=== PATIENT | male | born 1965 | race Caucasian/White ===

== ENCOUNTER 2021-07-27 06:55 | Day surgery (SDC) | payer MEDICARE, MEDICAID ==
[2021-07-27] MEDS ORDERED: fentaNYL 100 MCG/2 ML SDV ONE (07:22)
[2021-07-27] MEDS ORDERED: Midazolam 1 MG/ML 2 ML SDV ONE (07:22)
[2021-07-27] MEDS ORDERED: Propofol 200 MG/20 ML SDV ONE (07:23)
[2021-07-27] MEDS ORDERED: Lactated Ringers 1,000 ML IV SCH (07:45)
== END 2021-07-27 10:24 | disposition home or self-care (01) ==
LOC: JP.SDS 06:55
PROVIDERS: ATTEND Family Medicine
DX: Z12.11 Encounter for screening for malignant neoplasm of colon (principal); K64.4 Residual hemorrhoidal skin tags; Q90.9 Down syndrome, unspecified
CPT/HCPCS: J2250; J2704; J3010; J7120

== ENCOUNTER 2022-10-30 14:50 | Emergency (ER) | payer MEDICARE, MEDICAID ==
[2022-10-30] MEDS ORDERED: Doxycycline 100 MG Cap PO ONE (16:19)
[2022-10-30] MEDS ORDERED: Bacitracin Oint 1 GM U/D Packet TOP ONE (16:20)
== END 2022-10-30 16:49 | disposition home or self-care (01) ==
LOC: JP.ED 14:50
DX: S80.861A Insect bite (nonvenomous), right lower leg, initial encounter (principal); E03.9 Hypothyroidism, unspecified; E66.9 Obesity, unspecified; Z68.29 Body mass index [BMI] 29.0-29.9, adult; W57.XXXA Bitten or stung by nonvenomous insect and other nonvenomous arthropods, initial encounter
CPT/HCPCS: 99282; A9270

== ENCOUNTER 2023-05-01 19:12 | Emergency (ER) | payer MEDICARE, MEDICAID ==
[2023-05-01 20:53] LABS: BASOPHILS ABSOLUTE AUTO 0.09 K/uL (0.00-0.10); BASOPHILS PERCENT AUTO 1.6 % (0.1-1.3); EOSINOPHILS ABSOLUTE AUTO 0.04 K/uL (0.00-0.40); EOSINOPHILS PERCENT AUTO 0.7 % (0.0-5.4); HEMATOCRIT 41.4 % (38.4-49.7); HEMOGLOBIN 14.1 g/dL (12.9-16.9); IMMATURE GRAN PERCENT AUTO 0.4 % (0.0-0.7); LYMPHOCYTES ABSOLUTE AUTO 0.93 K/uL (0.8-3.3); LYMPHOCYTES PERCENT AUTO 16.7 % (11.4-47.7); MEAN CORPUSCULAR HEMOGLOBIN 33.3 pg (31.6-35.5); MEAN CORPUSCULAR HGB CONC 34.1 g/dL (31.6-35.5); MEAN CORPUSCULAR VOLUME 97.9 fL (81.4-99.0); MONOCYTES ABSOLUTE AUTO 0.65 K/uL (0.20-0.90); MONOCYTES PERCENT AUTO 11.7 % (3.3-12.6); NEUTROPHILS ABSOLUTE AUTO 3.84 K/uL (1.0-7.6); NEUTROPHILS PERCENT AUTO 68.9 % (40.0-78.1); PLATELET COUNT,PLT 160 K/uL (130-375); RED BLOOD CELL COUNT 4.23 M/uL (4.14-5.76); WHITE BLOOD CELL COUNT,WBC 5.6 K/uL (3.2-11.0)
[2023-05-01 20:54] LABS: IMMATURE GRAN ABSOLUTE AUTO 0.02 K/uL (0.00-0.23)
[2023-05-01 21:14] LABS: A/G RATIO 0.8 (1.2-2.2); ALANINE AMINOTRANSFERASE,ALT 11 U/L (12-78); ALKALINE PHOSPHATASE 53 U/L (46-116); ANION GAP 8.7 mmol/L (5.0-14.0); ASPARTATE AMNIOTRANSFERASE,AST 22 U/L (15-37); BILIRUBIN TOTAL 0.3 mg/dL (0.2-1.0); BLOOD UREA NITROGEN,BUN 22 mg/dL (7-18); C-REACTIVE PROTEIN 0.96 mg/dL (<0.50); CALCIUM 8.1 mg/dL (8.5-10.1); CARBON DIOXIDE,CO2 24 mmol/L (21-32); CHLORIDE,CL 107 mmol/L (100-108); CREATININE 1.3 mg/dL (0.8-1.3); ESTIMATED GFR 64 mL/min (>60); GLUCOSE RANDOM 100 mg/dL (74-106); POTASSIUM,K 3.9 mmol/L (3.6-5.2); PROTEIN TOTAL,TP 6.8 g/dL (6.4-8.2); SODIUM,NA 140 mmol/L (140-148)
== END 2023-05-01 22:43 | disposition home or self-care (01) ==
LOC: JP.ED 19:12
DX: R10.84 Generalized abdominal pain (principal); K62.89 Other specified diseases of anus and rectum; E03.9 Hypothyroidism, unspecified; E66.9 Obesity, unspecified; Z68.31 Body mass index [BMI] 31.0-31.9, adult; Z79.899 Other long term (current) drug therapy
CPT/HCPCS: 36415; 74176; 80053; 85025; 86140; 99284

== ENCOUNTER → 2023-05-16 | Day surgery (SDC) | payer MEDICARE, MEDICAID ==
[~2023-05-16] MED LIST: Midazolam 1 MG/ML 2 ML SDV ONE; Propofol 200 MG/20 ML SDV ONE; fentaNYL 50 MCG/ML SDV ONE
[2023-05-16] MEDS: Lactated Ringers 1,000 ML IV SCH (08:08)
== END ==
LOC: JP.SDS 07:50
PROVIDERS: ATTEND Family Medicine
DX: R10.84 Generalized abdominal pain (principal); G47.33 Obstructive sleep apnea (adult) (pediatric)
CPT/HCPCS: 45380; J2250; J2704; J3010; J7120

== ENCOUNTER 2023-08-08 11:35 | Emergency (ER) | payer MEDICARE, MEDICAID ==
[2023-08-08 12:36] LABS: BASOPHILS ABSOLUTE AUTO 0.08 K/uL (0.00-0.10); BASOPHILS PERCENT AUTO 0.7 % (0.1-1.3); EOSINOPHILS PERCENT AUTO 0.1 % (0.0-5.4); HEMATOCRIT 41.5 % (38.4-49.7); HEMOGLOBIN 14.3 g/dL (12.9-16.9); IMMATURE GRAN ABSOLUTE AUTO 0.04 K/uL (0.00-0.23); IMMATURE GRAN PERCENT AUTO 0.4 % (0.0-0.7); LYMPHOCYTES ABSOLUTE AUTO 0.54 K/uL (0.8-3.3); MEAN CORPUSCULAR HEMOGLOBIN 33.5 pg (31.6-35.5); MEAN CORPUSCULAR HGB CONC 34.5 g/dL (31.6-35.5); MEAN CORPUSCULAR VOLUME 97.2 fL (81.4-99.0); MONOCYTES ABSOLUTE AUTO 1.22 K/uL (0.20-0.90); MONOCYTES PERCENT AUTO 11.3 % (3.3-12.6); NEUTROPHILS ABSOLUTE AUTO 8.91 K/uL (1.0-7.6); NEUTROPHILS PERCENT AUTO 82.5 % (40.0-78.1); PLATELET COUNT,PLT 161 K/uL (130-375); RED BLOOD CELL COUNT 4.27 M/uL (4.14-5.76); WHITE BLOOD CELL COUNT,WBC 10.8 K/uL (3.2-11.0)
[2023-08-08 12:38] LABS: EOSINOPHILS ABSOLUTE AUTO 0.01 K/uL (0.00-0.40)
[2023-08-08 12:54] LABS: A/G RATIO 0.8 (1.2-2.2); ALANINE AMINOTRANSFERASE,ALT 18 U/L (12-78); ALBUMIN 3.2 g/dL (3.4-5.0); ALKALINE PHOSPHATASE 62 U/L (46-116); ANION GAP 10.1 mmol/L (5.0-14.0); ASPARTATE AMNIOTRANSFERASE,AST 21 U/L (15-37); BILIRUBIN TOTAL 0.6 mg/dL (0.2-1.0); BLOOD UREA NITROGEN,BUN 22 mg/dL (7-18); CALCIUM 8.6 mg/dL (8.5-10.1); CARBON DIOXIDE,CO2 26 mmol/L (21-32); CHLORIDE,CL 104 mmol/L (100-108); CREATININE 1.5 mg/dL (0.8-1.3); ESTIMATED GFR 53 mL/min (>60); GLUCOSE RANDOM 90 mg/dL (74-106); POTASSIUM,K 4.1 mmol/L (3.6-5.2); PROTEIN TOTAL,TP 7.1 g/dL (6.4-8.2); SODIUM,NA 140 mmol/L (140-148)
== END 2023-08-08 15:55 | disposition home or self-care (01) ==
LOC: JP.ED 11:35
DX: S09.90XA Unspecified injury of head, initial encounter (principal); R55 Syncope and collapse; E03.9 Hypothyroidism, unspecified; E66.9 Obesity, unspecified; Z79.899 Other long term (current) drug therapy; W19.XXXA Unspecified fall, initial encounter
CPT/HCPCS: 36415; 70450; 70450-26; 72125; 72125-26; 76377; 80053; 84484; 85025; 87651-QW; 93005; 93010; 99284